=== PATIENT | male | born 1975 | race Caucasian/White ===

== ENCOUNTER 2019-05-12 20:25 | Emergency (ER) | payer OTHER ==
[~2019-05-12] VITALS: Ht 188 cm; Wt 116.6 kg
[~2019-05-12 20:25] MED LIST: NORCO 5-325 TA1 EACH PO
[2019-05-12] MEDS ORDERED: IBUPROFEN 400400 M2 PO (20:35)
[2019-05-12 21:56] VITALS: BP 118/68
== END 2019-05-12 21:56 | disposition home or self-care (01) ==
LOC: M.ERS 20:25
DX: S61.217A Laceration without foreign body of left little finger without damage to nail, initial encounter (principal); Z90.49 Acquired absence of other specified parts of digestive tract; W26.8XXA Contact with other sharp object(s), not elsewhere classified, initial encounter; Y93.89 Activity, other specified; Y92.89 Other specified places as the place of occurrence of the external cause; Y99.8 Other external cause status

== ENCOUNTER 2020-07-07 20:50 | Emergency (ER) | payer OTHER ==
[~2020-07-07] VITALS: Ht 188 cm; Wt 111.1 kg
[~2020-07-07 20:50] MED LIST changes: +IBUPROFEN 400400 M2 PO
[2020-07-07 22:38] VITALS: BP 118/78
== END 2020-07-07 22:38 | disposition home or self-care (01) ==
LOC: M.ERS 20:50
DX: M79.10 Myalgia, unspecified site (principal); Z20.828 Contact with and (suspected) exposure to other viral communicable diseases; Z79.899 Other long term (current) drug therapy; Z90.49 Acquired absence of other specified parts of digestive tract